=== PATIENT | male | born 1965 | race Caucasian/White ===

== ENCOUNTER 2016-08-22 15:10 | Outpatient (CLI) ==
[2016-05-06 19:07] VITALS: BMI 31.8
== END 2016-08-22 15:11 | disposition home or self-care (01) ==
LOC: LAB 15:10
PROVIDERS: ATTEND General Practice
DX: T75.89XA Other specified effects of external causes, initial encounter (principal); Z02.89 Encounter for other administrative examinations
CPT/HCPCS: 36415

== ENCOUNTER 2016-11-14 10:40 | Outpatient (CLI) ==
[2016-05-06 19:07] VITALS: BMI 31.8
== END 2016-11-14 10:41 | disposition home or self-care (01) ==
LOC: LAB 10:40
PROVIDERS: ATTEND General Practice
DX: Z77.21 Contact with and (suspected) exposure to potentially hazardous body fluids (principal)
CPT/HCPCS: 36415

== ENCOUNTER 2018-10-22 17:12 | Emergency (ER) ==
[2018-10-22 17:21] VITALS: BP 199/108; TEMP 98; BMI 37.0
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
== END 2018-10-22 17:56 | disposition home or self-care (01) ==
LOC: ED 17:12
DX: S39.012A Strain of muscle, fascia and tendon of lower back, initial encounter (principal); V89.2XXA Person injured in unspecified motor-vehicle accident, traffic, initial encounter
CPT/HCPCS: 99283